=== PATIENT | female | born 1960 | race Caucasian/White ===

== ENCOUNTER 2019-01-02 20:36 | Emergency (ER) | payer BC ==
[~2019-01-02] VITALS: Ht 157.5 cm; Wt 59.9 kg
[2019-01-02 21:29] VITALS: Ht 157.5 cm; Wt 59.9 kg
[2019-01-03 00:49] VITALS: BP 140/77
== END 2019-01-03 00:49 | disposition home or self-care (01) ==
LOC: ED 20:36
DX: S39.012A Strain of muscle, fascia and tendon of lower back, initial encounter (principal); M54.17 Radiculopathy, lumbosacral region; X50.9XXA Other and unspecified overexertion or strenuous movements or postures, initial encounter; Y93.89 Activity, other specified; Y92.89 Other specified places as the place of occurrence of the external cause; Y99.8 Other external cause status
CPT/HCPCS: J1885; J3010